=== PATIENT | male | born 1950 | race Caucasian/White ===

== ENCOUNTER 2025-09-18 10:48 | Outpatient (REF) | payer MEDICARE, SELFPAY ==
--- OUTSIDE RECORDS SUMMARY | 2025-09-18 13:02 | XMS_ITS | Clinical Summary ---
Author Organization [facility] Address [address] [place] [address] Phone Care Team Providers Care Nicker Name Role Phone Meghna Shaw MD Primary Care Provider Allergies No known active allergies Medications nitroglycerin (NITROSTAT) 0.[address] 1 tablet (0.4 mg total) under the tongue every 5 (five) minutes if needed. 07/04/2022 Active aspirin 81 mg EC tablet Take 1 tablet (81 mg total) by mouth 1 (one) time each day. 90 tablet 3 04/20/2025 Active atorvastatin (LIPITOR) 40 mg tablet Take 1 tablet (40 mg total) by mouth 1 (one) time each day. 90 tablet 3 04/20/2025 Active sacubitriL-vals willie (Entresto) 49-51 mg per tablet Take 1 tablet by mouth 2 (two) times a day. 180 tablet 3 04/20/2025 Active metoprolol succinate (TOPROL-XL) 25 mg 24 hr tablet Take 1 tablet (25 mg total) by mouth 1 (one) time each day. 90 tablet 1 04/20/2025 Active omeprazole (PriLOSEC) [address] capsule TAKE 1 CAPSULE BY MOUTH EVERY DAY 90 capsule 08/15/2025 Active Active Problems Problem Noted Date Diagnosed Date History of lung cancer 03/09/2025 Assessment & Plan (03/09/2025 10:04 AM EDT): Mr. Pryor is a 74 year old male who had a right lower lobectomy in January 2023 for stage Ia squamous cell carcinoma. The patient's most recent surveillance chest CT scan done in February 2025 shows no new, or worsening, pulmonary nodule or thoracic adenopathy to suggest recurrence or new disease. He does have multiple calcified and noncalcified pleural plaques which appear stable. We will continue with routine chest CT surveillance the next of which would be in 1 year, February 2026. The patient have a follow-up visit after that. Cardiomyopathy (CMS/HCC V24, CMS/HCC V28) 2022 Overview (04/20/2025): - ischemic cardiomyopathy, LVEF 35-40% in 07/2022 - Most recent echocardiogram 10/2023 showing LVEF 45-50%, mild concentric LVH, abnormal septal motion, normal biatrial size, normal RV size and global function, without hemodynamically significant valve disease and normal PASP. Assessment & Plan (04/20/2025 1:00 PM EDT): The patient's LVEF is mild to moderately reduced. He appears euvolemic on exam today. He states that when his Entresto was increased, his breathing improved. As such, continue his beta-harsh and ARNI. Will update his echocardiogram at his convenience. Pulmonary nodule 01/12/2023 Overview (11/02/2024): Last Assessment & Plan: 72-year-old male current smoker but has cut down who has had serial low-dose CT scans as part of the lung cancer screening program. As most recent CT scan there is a suspicious spiculated 1 cm nodule at the posterior basilar segment of the right lower lobe. He was discussed at multidisciplinary conference and the decision was for pulmonary function testing which she had already had and a visit with me after that. His pulmonary function testing is not prohibitive of lung surgery although he does have a significant cardiac history as described above. We discussed the nodule in general and what nodules could be including inflammatory/infectious versus malignancy. I did also discussed the diagnosis, staging, and treatment of lung cancer which she seemed understand. I gave him a handout regarding this. Options discussed with him would be continued observation which would be a 3-month follow-up CT scan versus navigational bronchoscopy with biopsy versus navigational bronchoscopy with dye marking wedge resection possible lobectomy. He is considering his options and would like to discuss this with his daughter who is local in the area. I discussed the risks and benefits of each of these options in detail. He states he will call us with how he wants to proceed in the next few days. If he decides either for a navigational bronchoscopy with biopsy or surgery he will need cardiology visit which would need to happen as soon as possible so that we can get him on the schedule as soon as possible. All questions were answered. S/P cholecystectomy 06/25/2020 Atrial fibrillation ([facility] V24, [facility] V28) 0 05/16/2019 Overview (04/20/2025): - diagnosed 04/2019 -Cardioversion 06/2019 - status post left atrial appendage exclusion, bilateral PVI and maze procedure at the time of his CABG - No longer anticoagulated Assessment & Plan (04/20/2025 12:58 PM EDT): The patient has not had any clinical recurrence of his atrial fibrillation. He is in sinus rhythm on his EKG in office today. He is no longer anticoagulated following Maze, PVI and ERWIN exclusion. Continue BB at current dose. Esophageal cyst 04/07/2018 Overview (11/02/2024): Found on egd in the distal esophagus within the hiatal hernia- pathology: Benign cyst. Short segment distal barretts esopaghus- no further endo as per GI for now. Hiatal hernia 01/11/2018 Anxiety 10/29/2017 CAD (coronary artery disease) 10/29/2017 Overview (04/20/2025): 3V CABG with SMITH to the LAD, SVG to the RCA, and radial artery to the ramus 01/[address] Worrell Most recent stress test 07/2022 showing a fixed inferior wall defect that improved with attenuation correction, LVEF 58% Assessment & Plan (04/20/2025 1:01 PM EDT): The patient has no anginal symptoms to his current MET workload. 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 He is interested in considering visiting orthopedics for consideration for knee discomfort. He will see his PCP about this In the meantime, continue his aspirin, beta-harsh, statin and ARNI COPD (chronic obstructive pu lmonary disease) ([facility] V24, 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 Continue Hyperlipidemia 07/03/2017 Assessment & Plan (04/20/2025 1:01 PM EDT): Well-controlled lipid profile on current dose statin. Continue Tobacco use disorder 07/03/2017 Vitamin D deficiency 07/03/2017 Resolved Problems Problem Noted Date Diagnosed Date Resolved Date Stage I squamous cell carcin kavin of right lung ([facility] V24, [facility] V28) 03/12/2023 03/09/2025 Encounters Date Type Department Care Team Description 08/09/2025 Telephone [facility] [address] [place] [id number] Deyanira Miller NP 07/27/2025 8:30 AM EDT Ancillary Procedure [facility] [address] [place] [id number] Atrial fibrillation, unspecified type ([facility] V24, [facility] V28); Coronary artery disease involving [place] coronary artery of [place] heart without angina pectoris; Ischemic cardiomyopathy; Primary hypertension 07/13/2025 8:30 AM EDT Office Visit Adult Medicine [address] [phone] Meghna Shaw MD Mixed hyperlipidemia (Primary Dx); History of lung cancer; HFrEF (heart failure with reduced ejection fraction) (CMS/HCC V24, CMS/HCC V28); S/P CABG x 3; History of esophageal stricture; Hearing decreased, bilateral 07/12/2025 8:00 AM EDT Consult General Surgery - [place] [address] [place] [address] Payam Rehman MD Carbuncle and furuncle of neck 07/10/2025 10:30 AM EDT Office Visit Walk-In Clinic - [facility] [address] [place] [address] Alfred Isaacs, DIRECTOR RISK Abscess (Primary Dx) from Last 3 Months Immunizations Immunization Administration Dates Next Due COVID-19 (Pfizer/Comirnaty) 12yo and older 09/15/2024 Influenza Quadravalent, 0.5m l (Fluad) 65yo and older 12/31/2021 Influenza Quadravalent, 0.5m l (Fluzone High-dose) 65yo and older 10/02/2022,11/22/2020 Influenza Quadravalent, MDCK , 0.5ml, with preservative (Flucelvax) 6mo and older 11/11/2017 Influenza trivalent, 0.5mL ( Fluad) 65yo and older 09/15/2024,09/10/2023,10/02/2022,08/21,10/12/2019 Influenza trivalent, 0.5mL ( Fluzone High-dose) 65yo and older 09/10/2023,08/21/2021,10/12/2019 Influenza trivalent, with pr eservative (Fluzone; Afluria) 6mo and older 09/24/2011 Moderna (age 6mo & older) Bi valent, COVID-19, 0.5 mL or 0.25 mL dosage 10/02/2022 Moderna (age 6mo-5yr) Bivale nt Additional Dose, COVID-19 10/02/2022 Moderna SARS-CoV-2 COVID-19, mRNA, LNP-S, preservative free 10/02/2022,12/31/2021 Pfizer SARS-CoV-2 COVID-19, mRNA, LNP-S, preservative free 09/15/2024 Pneumococcal conjugate 13 va lent (Prevnar 13, PCV13) 2mo and older 04/30/2017 Pneumococcal conjugate 20 va lent (Prevnar 20, PCV 20) 2mo and older 01/13/2025 Pneumococcal polysaccharide 23 valent (Pneumovax 23) 2yo and older 08/15/2016 Td Tetanus diptheria (Tdvax) 7yo and older 10/12/2019 Surgical History Surgery Date Site/Laterality Comments HERNIA REPAIR PROCEDURE: HISTORICAL HERNIA REPAIR/VICKI KNEE SURGERY Right PROCEDURE: HISTORICAL KNEE SURGERY OTHER SURGICAL HISTORY Left PROCEDURE: HISTORY OTHER; COMMENT: hydrocele TONSILLECTOMY PROCEDURE: HISTORICAL TONSILLECTOMY UPPER GASTROINTESTINAL ENDOSCOPY 04/02/2018 PROCEDURE: IA UPPER GI ENDOSCOPY PERFORMED; COMMENT: Aziza@[facility]; medium sized distal esophageal submucosal mass. Biopsies showed simple submucosal cyst. OTHER SURGICAL HISTORY 02/2020 PROCEDURE: IA CABG W/ARTERIAL GRAFT THREE ARTERIAL GRAFTS CHOLECYSTECTOMY PROCEDURE: LAPAROSCOPIC CHOLECYSTECT CATARACT EXTRACTION 09/30/2023 PROCEDURE: HISTORICAL CATARACT REMOVAL OTHER SURGICAL HISTORY 02/24/2023 Right PROCEDURE: IA THORACOSCOPY W/LOBECTOMY SINGLE LOBE; COMMENT: RLL Wedge & Lobectomy COLONOSCOPY 04/07/2024 PROCEDURE: HISTORICAL COLONOSCOPY; COMMENT: multiple colon polyps OTHER SURGICAL HISTORY 04/07/2024 PROCEDURE: IA EGD BALLOON DILATION ESOPHAGUS <30 MM DIAM Medical History Medical History Date Comments Hyperlipidemia 07/03/2017 DX:Hyperlipidemi a HTN (hypertension) 07/03/2017 DX:HTN (hyper tension) Vitamin D deficiency 07/03/2017 DX:Vitamin D deficiency Alcohol abuse 07/03/2017 DX:Alcohol abuse Tobacco use disorder 07/03/2017 DX:Tobacco use disorder Erectile dysfunction 07/03/2017 DX:Erectile dysfunction Mild diastolic dysfunction 09/21/2017 DX:Mi ld diastolic dysfunction CAD (coronary artery disease) 10/29/2017 DX :CAD (coronary artery disease) Anxiety 10/29/2017 DX:Anxiety COPD (chronic obstructive pu lmonary disease) ([facility] V24, [facility] V28) 10/29/2017 DX:COPD (chronic o bstructive pulmonary disease) ([facility]) DJD (degenerative joint dise ase) of knee 10/29/2017 DX:DJD (degenerative joint d isease) of knee Hiatal hernia 01/11/2018 DX:Hiatal hernia Esophageal cyst 04/07/2018 DX:Esophageal cy st; COMMENT: Found on egd in the distal esophagus- pathology pendinig- 04/16 Atrial fibrillation (CMS/HCC V24, CMS/HCC V28) 05/16/2019 DX:Atrial fibrillation (HCC) ; COMMENT: With RVR- dilatiazem drip Cardiomyopathy (CMS/HCC V24, CMS/HCC V28) 02/12/2023 DX:Cardiomyopathy (HCC) Stage I squamous cell carcin kavin of right lung (CMS/HCC V24, CMS/HCC V28) 03/12/2023 DX:Stage I squam ous cell carcinoma of right lung (HCC) S/P cholecystectomy 06/25/2020 DX:S/P sandy cystectomy Pulmonary nodule 01/12/2023 DX:Pulmonary no dule Preop cardiovascular exam 02/12/2023 DX:Pre op cardiovascular exam History of lung cancer 03/10/2023 DX:Histor y of lung cancer Family History Medical History Relation Name Comments No Known Problems Brother 1 No Known Problems Brother 2 No Known Problems Daughter Coronary artery disease Father No Known Problems Mother Other: colitis Sister Other: fentanyl over Son fr om fentanyl overdose at 26yr Relation Name Status Comments Brother 1 Alive Brother 2 Alive Daughter Alive Father Mother Sister Son Social History Tobacco Use Types Packs/Day Years Used Date Smoking Tobacco: Former Cigarettes 0.5 62.6 0 07/03/1960 - 02/23/2023 Smokeless Tobacco: Never Alcohol Use Standard Drinks/Week Comments Yes 0 (1 standard drink = 0.6 oz pur e alcohol) Sex and Gender Information Value Date Recorded Sex Assigned at Male 12/30/2024 4:28 PM EST Legal Sex Male 6:04 PM EST Gender Identity Male 12/30/2024 4:28 PM EST Sexual Orientation Straight 12/30/2024 4: 28 PM EST Obstetrics History Last Filed Vital Signs Vital Sign Reading Time Taken Comments Blood Pressure 129/82 07/27/2025 10:02 AM EDT Pulse 70 07/13/2025 8:25 AM EDT Temperature 36.3 C (97.4 F) 07/13/2025 8:25 AM EDT Respiratory Rate 16 07/13/2025 8:25 AM EDT Oxygen Saturation 97% 07/10/2025 10:24 AM EDT Inhaled Oxygen Concentration - - Weight 84.8 kg (187 lb) 07/27/2025 10:02 AM EDT Height 170.2 cm (5' 7 ) 07/27/2025 10:02 AM EDT Body Mass Index 29.29 07/27/2025 10:02 AM EDT Plan of Treatment Upcoming Encounters Date Type Department Care Team (Late st Contact Info) Description 12/29/2025 10:40 AM EST Office Visit [facility] [address] [place] [phone] Aye Ritchie NP [address] [place] [address] [address] [place] [address] 01/15/2026 8:30 AM EST Office Visit Adult Medicine - [place] [address] [place] [address] Ld Brice PA [address] [place] [address] Health Maintenance Due Date Last Done Comments Hepatitis A Vaccines (1 of 2 - Risk 2-dose series) 1969 Zoster Vaccines (1 of 2) 1969 Social Influencers of Health Screening 11/08/2022 Lung Cancer Screening (Low Dose CT) 12/29/2023 12/29/2022, 12/26/2021, 12/24/2020 RSV Immunization Adult Patients (1 - 1-dose 75+ series) 2025 COVID-19 Vaccine ( season) 2025 09/15/2024, 09/15/2024, 10/02/2022, Additional history exists Influenza Vaccine (#1) 2025 , 09/10/2023, 09/10/2023, Additional history exists Falls Risk Assessment 01/13/2026 01/13/2025, 024 Hypertension/CHF/CAD Annual BMP Blood Test 01/13/2026 01/13/2025, 02/02/2024 Medicare Annual Wellness Visit 01/13/2026 01/13/2025 Colorectal Cancer Screening: Colonoscopy 05/05/2027 04/06/2024 DTaP,Tdap,and Td Vaccines (2 - Td or Tdap) 10/12/2029 10/12/2019 Cholesterol Screening (Lipid Panel) 01/13/2030 01/13/2025, 02/02/2024 Abdominal Aortic Aneurysm (AAA) Screen Completed 08/21/2017, 08/21/2017 Hepatitis C Screening Completed 11/11/2017 Depression Screening Completed 01/13/2025, 12/14/19 24 Pneumococcal Vaccine: 50+ Years Completed 01/13/2025, 04/30/2017, 08/15/2016 HIB Vaccines Aged Out No longer eligi ble based on patient's age to complete this topic HPV Vaccines Aged Out No longer eligi ble based on patient's age to complete this topic Hepatitis B Vaccines Aged Out No long er eligible based on patient's age to complete this topic IPV Vaccines Aged Out No longer eligi ble based on patient's age to complete this topic MMR Vaccines Aged Out No longer eligi ble based on patient's age to complete this topic Meningococcal ACWY Vaccine Aged Out N o longer eligible based on patient's age to complete this topic Meningococcal B Vaccine Aged Out No l onger eligible based on patient's age to complete this topic RSV Immunization Patients Under 20 months Aged Out No longer eligible based on patient's age to complete this topic Varicella Vaccines Aged Out No longer eligible based on patient's age to complete this topic Procedures Procedure Name Priority Date/Time Associated Diagnosis Comments TRANSTHORACIC ECHOCARDIOGRAM (TTE) COMPLETE W/ CONTRAST Routine 07/27/2025 9:15 AM EDT Atrial fibrillation, unspecified type (CMS/HCC V24, CMS/HCC V28) Coronary artery disease involving [place] coronary artery of [place] heart without angina pectoris Ischemic cardiomyopathy Primary hypertension COMPREHENSIVE METABOLIC PANEL Routine 01/13/2025 11:48 AM EST Medicare annual wellness visit, subsequent Cardiomyopathy, unspecified type (CMS/HCC V24, CMS/HCC V28) Coronary artery disease due to lipid rich plaque Primary hypertension LIPID PANEL WITH REFLEX TO DIRECT LDL Routine 01/13/2025 11:48 AM EST Medicare annual wellness visit, subsequent Cardiomyopathy, unspecified type (CMS/HCC V24, CMS/HCC V28) Coronary artery disease due to lipid rich plaque Primary hypertension COLONOSCOPY Routine 04/06/2024 DEPRESSION SCREENING Routine 12/14/2023 FALLS RISK ASSESSMENT Routine 12/07/2023 CT LUNG SCREENING LOW DOSE Routine 12/29/2022 2:05 PM EST Personal history of nicotine dependence HEPATITIS C SCREENING Routine 11/11/2017 US ABDOMINAL AORTA REAL TIME SCREEN STUDY AAA Routine 08/21/2017 10:57 AM EDT Encounter for screening for cardiovascular disorders from Last 3 Months or Most Recently Relevant to Health Maintenance Results * (ABNORMAL) TRANSTHORACIC ECHOCARDIOGRAM (TTE) COMPLETE W/ CONTRAST (07/27/2025 9:15 AM EDT) LV EDV (A2C) 67 mL CV PACS LV EDV (A4C) 94 mL CV PACS LV Diastolic Volume (BP) 79 62 - 150 mL CV PACS LV ESV (A2C) 28 mL CV PACS LV ESV (A4C) 46 mL CV PACS LV Systolic Volume (BP) 37 21 - 61 mL CV PACS IVSD 1.1(A) 0.6 - 1.0 cm CV PACS LVIDD 5.7 4.2 - 5.8 cm CV PACS LVIDS 4.2(A) 2.5 - 4.0 cm CV PACS LVOT Diameter 2.4 cm CV PACS LVOT Mean Dean 0.5 m/s CV PACS LVOT Mean Grad 1 mmHg CV PACS LVOT Mean Grad 1 mmHg CV PACS LVOT Peak VTI 15.0 cm CV PACS LVOT Peak Dean 0.7 m/s CV PACS LVOT Peak Gradient 2 mmHg CV PACS LVPWD 1.1(A) 0.6 - 1.0 cm CV PACS MV E' Tissue Velocity Lateral 11 cm/s CV PACS MV E' Tissue Velocity Septal 5 cm/s CV PACS Ejection Fraction (A2C) 58 % CV PACS Ejection Fraction (A4C) 51 % CV PACS Ejection Fraction (BP) 54 % CV PACS LVOT Area 4.5 cm2 CV PACS LVOT Stroke Volume 68 mL CV PACS Left Atrium Minor Viola 6.5 cm CV PACS Left Atrium Major Viola 6.4 cm CV PACS LA Area Sys (A2C) 28 cm2 CV PACS LA Area Sys (A4C) 26 cm2 CV PACS LA Volume (BP) 95 mL CV PACS RA Area 18.2 cm2 CV PACS RA 2D Volume 46 mL CV PACS AV Mean Gradient 3 mmHg CV PACS AV Mean Gradient 3 mmHg CV PACS Ao VTI 25.0 cm CV PACS AV Peak Dean 1.2 m/s CV PACS AV Peak Gradient 6 mmHg CV PACS AV Area Continuity Equation 2.7 cm2 CV PACS AV Area Peak Velocity 2.7 cm2 CV PACS Aortic Arch 2.5 cm CV PACS Ascending Aorta 3.9 cm CV PACS Aortic Sinus Valsalva 3.9 cm CV PACS IVC Proximal 2.0 cm CV PACS MV Deceleration Alexander 2.9 m/s2 CV PACS E Wave Deceleration Time 183 119 - 242 ms CV PACS MV PHT 63 ms CV PACS MV Peak A Dean 0.52 m/s CV PACS MV Peak E Dean 0.52 m/s CV PACS MV Mean Gradient 0 mmHg CV PACS MV Mean Gradient 0 mmHg CV PACS MV Mean Gradient 0 mmHg CV PACS MV Mean Gradient 0 mmHg CV PACS MV VTI 18.7 cm CV PACS Mitral Valve Max Velocity 0.7 m/s CV PACS MV Peak Gradient 2 mmHg CV PACS MV Area PHT 3.5 cm2 CV PACS MV Area Continuity Equation 3.6 cm2 CV PACS PV Acceleration Time 120 ms CV PACS PV Acceleration Time 120 ms CV PACS PV Acceleration Time 120 ms CV PACS PV Mean Gradient 1 mmHg CV PACS PV VTI 13.7 cm CV PACS PV Peak Velocity 0.8 m/s CV PACS PV Peak Gradient 3 mmHg CV PACS RV Diastolic Basal Dimension 4.2(A) 2.5 - 4.1 cm CV PACS RV S' 8 cm/s CV PACS TAPSE 20 mm CV PACS TR Peak Velocity 2.80 m/s CV PACS TR Peak Gradient 31 mmHg CV PACS E/E' Ratio Septal 10 CV PACS E/E' Ratio Averaged 8 CV PACS Relative Wall Thickness ratio 0.39 CV PACS LVOT:AV VTI Index 0.60 CV PACS FS 26 % CV PACS LV Mass 2D 257 g CV PACS MV VTI:LVOT VTI ratio 1.2 CV PACS LVOT flow 226 mL/s CV PACS AV Velocity Ratio 0.58 CV PACS E/A Ratio 1.0 CV PACS E/E' Ratio Lateral 5 CV PACS BSA 2 m2 CV PACS LV Diastolic Volume Index (BP) 40 34 - 74 mL/m2 CV PACS LV Systolic Volume Index (BP) 19 11 - 31 mL/m2 CV PACS LV EDV Index (A4C) 48 mL/m2 CV PACS LV ESV Index (A4C) 23 mL/m2 CV PACS LV EDV Index (A2C) 34 mL/m2 CV PACS LV ESV Index (A2C) 14 mL/m2 CV PACS LA Volume Index (BP) 48 mL/m2 CV PACS LVIDD Index 2.89 cm/m2 CV PACS LVIDS Index 2.13 cm/m2 CV PACS LV Mass Index 2D 130(A) 50 - 102 g/m2 CV PACS LVOT Stroke Index 35 mL/m2 CV PACS RA 2D Volume Index 23 18 - 32 mL/m2 CV PACS ANTWAN Index (VTI) 1.38 cm2/m2 CV PACS ANTWAN Index (Pk Dean) 1.37 cm2/m2 CV PACS Ascending Aorta Index 1.98 cm/m2 CV PACS Right Ventricular Peak Systolic Pressure 34 mmHg CV PACS Est. RA Pressure 3 mmHg CV PACS Anatomical Region Laterality Modality Ultrasound Narrative 08/01/2025 10:42 AM EDT Left ventricle cavity size is normal. There is mild concentric hypertrophy. Systolic function is low normal with an ejection fraction of 50-55%. There are no regional LV wall motion abnormalities. Right ventricle was not well visualized. Right ventricle cavity is mildly dilated. Systolic function is normal. Mild mitral regurgitation. Mild tricuspid regurgitation. The right ventricular systolic pressure is normal. The RVSP is estimated at 34 mmHg. Compared to previous study of 11/13/2023, right ventricle appears mildly enlarged. The differences could be technical related. Left Ventricle Left ventricle cavity size is normal. There is mild concentric hypertrophy. Systolic function is low normal with an ejection fraction of 50-55%. There are no regional LV wall motion abnormalities. Indeterminate diastolic function. There is abnormal septal motion. Right Ventricle Right ventricle was not well visualized. Right ventricle cavity is mildly dilated. Systolic function is normal. Left Atrium Left atrium cavity is moderately dilated. Right Atrium Right atrium cavity is normal. IVC/SVC Inferior vena cava structure is normal. RA pressures is estimated to be 8 mmHg (IVC diameter <21 mm and decreases <50% during inspiration). Mitral Valve The leaflets are mildly thickened. There is mild annular calcification. There is mild regurgitation with a centrally directed jet. There is no evidence of mitral valve stenosis. Tricuspid Valve Tricuspid valve structure is normal. There is mild regurgitation with a central jet. There is no evidence of tricuspid valve stenosis. The right ventricular systolic pressure is normal. The RVSP is estimated at 34 mmHg. Aortic Valve The aortic valve is trileaflet. The leaflets are mildly thickened. There is no regurgitation or stenosis. Pulmonic Valve The pulmonic valve was not well visualized. There is trace pulmonic valve regurgitation. There is no evidence of pulmonic valve stenosis. Ascending Aorta The ascending aorta is (3.9 cm). Pericardium Pericardium appears normal. There is no pericardial effusion. Study Details Overall the study quality was technically difficult. Definity contrast was given to enhance imaging. Deyanira Miller NP CV ECHO PROCEDURES Final Result * Lipid panel with reflex to direct LDL (01/13/2025 11:48 AM EST) Cholesterol 139 0 - 200 mg/dL LAB CHEMISTRY METHOD 01/13/2025 1:24 PM EST [facility] Triglycerides 121 0 - 150 mg/dL LAB CHEMISTRY METHOD 01/13/2025 1:24 PM EST [facility] HDL 49 >=40 mg/dL LAB CHEMISTRY METHOD 01/13/2025 1:24 PM EST [facility] LDL Calculated 66 0 - 100 mg/dL LAB CHEMISTRY METHOD 01/13/2025 1:24 PM EST [facility] VLDL Cholesterol Teto 24.2 mg/dL LAB CHEMISTRY METHOD 01/13/2025 1:24 PM EST [facility] Non HDL Chol. (LDL+VLDL) 90 <145 mg/dL LAB CHEMISTRY METHOD 01/13/2025 1:24 PM [facility] Chol/HDL Ratio 2.8 0.0 - 4.4 LAB CHEMISTRY METHOD 01/13/2025 1:24 PM [facility] Blood Venous blood specimen / Unknown Venipuncture / Unknown 01/13/2025 11:48 AM EST 01/13/2025 11:48 AM EST us Ld [facility] LAB BLOOD ORDERABLES Final Re sult [facility] [address] [place] [address], * (ABNORMAL) Comprehensive metabolic panel (01/13/2025 11:48 AM EST) Sodium 136 133 - 145 mmol/L LAB CHEMISTRY METHOD 01/13/2025 1:24 PM [facility] [facility] Potassium 3.9 3.5 - 5.5 mmol/L LAB CHEMISTRY METHOD 01/13/2025 1:24 PM [facility] Chloride 104 96 - 110 mmol/L LAB CHEMISTRY METHOD 01/13/2025 1:24 PM [facility] CO2 27 21 - 32 mmol/L LAB CHEMISTRY METHOD 01/13/2025 1:24 PM [facility] Anion Gap 5 3 - 11 LAB CHEMISTRY METHOD 01/13/2025 1:24 PM [facility] Glucose 84 70 - 100 mg/dL LAB CHEMISTRY METHOD 01/13/2025 1:24 PM [facility] BUN 21 5 - 25 mg/dL LAB CHEMISTRY METHOD 01/13/2025 1:24 PM [facility] Creatinine 1.25 0.70 - 1.30 mg/dL LAB CHEMISTRY METHOD 01/13/2025 1:24 PM [facility] eGFR 60 >=60 mL/min/1. 73m2 LAB CHEMISTRY METHOD 01/13/2025 1:24 PM [facility] Comment:Calculation based on the Chronic Kidney Disease Epidemiology Collaboration (CKD-EPI) equation refit without adjustment for race. BUN/Creatinine Ratio 16.8 LAB CHEMISTRY METHOD 01/13/2025 1:24 PM [facility] Calcium 9.0 8.5 - 10.5 mg/dL LAB CHEMISTRY METHOD 01/13/2025 1:24 PM [facility] AST (SGOT) 19 10 - 42 unit/L LAB CHEMISTRY METHOD 01/13/2025 1:24 PM [facility] ALT (SGPT) 25 10 - 60 unit/L LAB CHEMISTRY METHOD 01/13/2025 1:24 PM [facility] Alkaline Phosphatase 103 42 - 121 unit/L LAB CHEMISTRY METHOD 01/13/2025 1:24 PM [facility] Total Protein 7.2 6.0 - 8.0 g/dL LAB CHEMISTRY METHOD 01/13/2025 1:24 PM [facility] Albumin 3.6 3.2 - 5.0 g/dL LAB CHEMISTRY METHOD 01/13/2025 1:24 PM [facility] Total Bilirubin 2.1(H) 0.0 - 1.4 mg/dL LAB CHEMISTRY METHOD 01/13/2025 1:24 PM [facility] Blood Venous blood specimen / Unknown Venipuncture / Unknown 01/13/2025 11:48 AM EST 01/13/2025 11:48 AM EST us [facility] BLOOD ORDERABLES Final Re sult [facility] [address] [place] [address], [place] [phone] * Colonoscopy (04/06/2024) Colonoscopy No interpreta tion,abstr acted Anatomical Region Laterality Modality Other Historical Provider HEALTH MAINTENANCE Final Result * Depression Screening (12/14/2023) Depression Screening Abstracted Historical Provider HEALTH MAINTENANCE Final Result * Falls Risk Assessment (12/07/2023) Falls Risk Assessment Abstracted Historical Provider HEALTH MAINTENANCE Final Result * CT LUNG SCREENING LOW DOSE (12/29/2022 2:05 PM EST) Anatomical Region Laterality Modality Computed Tomogra phy 12/29/2022 8:17 AM EST Narrative 12/29/2022 2:05 PM [facility] Diagnostic Imaging Department [address] [place] [id number] Patient: ROLAND PRYOR D.O.B./Age/Sex: 1950 - 72 - M Unit#: [id number] Location/Status: NOE/EMBER CLI Mnemonic/Ordering Site: CTLUNGLD/SPCT Ordering Physician: ARTUR PEDERSON MD CT Lung Screening Low Dose - 12/29/22821 PROCEDURE: CT Lung Screening Low Dose INDICATION: Tobacco abuse Current smoker with 79.5 pack year total COMPARISON: 12/26/2021 TECHNIQUE: Noncontrast low dose chest CT was performed per lung cancer CT screening protocol. Washio VCT dose reduction, utilizing iterative reconstruction. Total exam DLP 180.04 (mGy-cm) FINDINGS: The heart is within normal limits in size. There is no pericardial effusion. The patient is status post coronary artery bypass graft. There is no evidence for middle mediastinal lymphadenopathy. The pulmonary kendall are symmetric, but mild adenopathy cannot be excluded without IV contrast material. Developing 1.0 x 1.0 cm noncalcified pulmonary nodule with spiculated borders located within the posterior basal segment of the right lower lobe. No evidence of suspicious pulmonary nodule on the left. No evidence of confluent airspace opacity or lung consolidation. Findings are superimposed upon a background of moderate upper lobe predominant centrilobular and paraseptal emphysematous changes Partially calcified pleural plaques bilaterally which can be seen in setting of prior asbestos exposure. Technique was not optimized for assessment of the included upper abdomen. Fluid density lesion at the distal third of the thoracic esophagus measuring 3.2 x 2.7 x 3.0 cm is not significantly changed in size, but results in partial effacement of the esophageal lumen. The included portion of the skeleton demonstrates no evidence of aggressive bony lesion. Degenerative endplate ridging at the midthoracic spine and thoracolumbar junction. IMPRESSION: Developing 1.0 cm spiculated pulmonary nodule within the right lower lobe. 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 Lung Rads Category: 4B-very suspicious - Further evaluation with PET/CT or tissue sampling is recommended. [id number] G9557 G9551 [id number] Dictating Physician: HENNY RAMOS MD Electronically Signed by: HENNY RAMOS MD Dic Date/Time: 12/29/22 1357 Sign date/Time: 12/29/22 1400 Procedure Note Henny Ramos MD - 01/01/2024 [facility] Diagnostic Imaging Department [address] [place] [address] Patient: ROLAND PRYOR /Age/Sex: 1950 - 72 - M Unit#: [id number] Location/Status: SPDICATLS/REG CLI Mnemonic/Ordering Site: CTLUNGLD/SPCT Ordering Physician: ARTUR PEDERSON MD CT Lung Screening Low Dose - 12/29/22821 PROCEDURE: CT Lung Screening Low Dose INDICATION: Tobacco abuse Current smoker with 79.5 pack year total COMPARISON: 12/26/2021 TECHNIQUE: Noncontrast low dose chest CT was performed per lung cancerCT screening protocol. Washio VCT dose reduction, utilizing iterative reconstruction. Total exam DLP 180.04 (mGy-cm) FINDINGS: The heart is within normal limits in size. There is no pericardialeffusion. The patient is status post coronary artery bypass graft. There is no evidence for middle mediastinal lymphadenopathy. The pulmonaryhila are symmetric, but mild adenopathy cannot be excluded without IVcontrast material. Developing 1.0 x 1.0 cm noncalcified pulmonary nodule with spiculatedborders located within the posterior basal segment of the right lower lobe. No evidence of suspicious pulmonary nodule on the left. No evidence of confluent airspace opacity or lung consolidation. Findings aresuperimposed upon a background of moderate upper lobe predominant centrilobular and paraseptal emphysematous changes Partially calcified pleural plaques bilaterally which can be seen insetting of prior asbestos exposure. Technique was not optimized for assessment of the included upperabdomen. Fluid density lesion at the distal third of the thoracic esophagusmeasuring 3.2 x 2.7 x 3.0 cm is not significantly changed in size, but results inpartial effacement of the esophageal lumen. The included portion of the skeleton demonstrates no evidence ofaggressive bony lesion. Degenerative endplate ridging at the midthoracic spine and thoracolumbar junction. IMPRESSION: Developing 1.0 cm spiculated pulmonary nodule within theright lower lobe. 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 Lung Rads Category: 4B-very suspicious - Further evaluation with PET/CTor tissue sampling is recommended. [id number] G9557 G9551 [id number] Dictating Physician: HENNY RAMOS MD Electronically Signed by: HENNY RAMOS MD Dic Date/Time: 12/29/22 1352 Sign date/Time: 12/29/22 1405 Artur Pederson MD IMG CT PROCEDURES Final Result * Hepatitis C Screening (11/11/2017) Hepatitis C Screening Abstracted Historical Provider HEALTH MAINTENANCE Final Result * US ABDOMINAL AORTA REAL TIME SCREEN STUDY AAA (08/21/2017 10:57 AM EDT) Anatomical Region Laterality Modality Ultrasound 08/12/2017 9:26 AM EDT Narrative 08/21/2017 4:51 PM EDT Abdominal aortic ultrasound: HISTORY: AAA screening Abdominal aorta is normal in size measuring 2.3 cm proximally 1.8 cm mid and 1.4 cm distally. Common iliac arteries are normal in size. IMPRESSION: IMPRESSION: No evidence of AAA. Procedure Note Walter Sullivan MD - 01/01/2024 Abdominal aortic ultrasound: HISTORY: AAA screening Abdominal aorta is normal in size measuring 2.3 cm proximally 1.8 cm midand 1.4 cm distally. Common iliac arteries are normal in size. IMPRESSION: IMPRESSION: No evidence of AAA. Luba Cordova MD IMG US PROCEDURES Edite d Result - Final from Last 3 Months or Most Recently Relevant to Health Maintenance Insurance [employer] Advance Directives Documents on File Type Date Recorded Patient Associate Medical Director Expl anation Health Care Decision (hx) 03/03/2023 AD CALDERON DIRECTIVE Health Care Decision (hx) 03/03/2023 AD CALDERON DIRECTIVE Health Care Decision (hx) 03/03/2023 AD CALDERON DIRECTIVE Health Care Decision (hx) 03/03/2023 AD CALDERON DIRECTIVE Health Care Decision (hx) 03/03/2023 AD CALDERON DIRECTIVE Health Care Decision (hx) 03/03/2023 AD CALDERON DIRECTIVE Health Care Decision (hx) 03/03/2023 AD CALDERON DIRECTIVE Health Care Decision (hx) 03/03/2023 AD CALDERON DIRECTIVE Health Care Decision (hx) 03/03/2023 AD CALDERON DIRECTIVE Health Care Decision (hx) 03/03/2023 AD CALDERON DIRECTIVE Health Care Decision (hx) 03/03/2023 AD CALDERON DIRECTIVE Health Care Decision (hx) 03/03/2023 AD CALDERON DIRECTIVE Health Care Decision (hx) 03/03/2023 AD CALDERON DIRECTIVE Care Teams Nicker Relationship Specialty Start Date End Date Meghna Shaw MD [address] [place] [id number] PCP - General Internal Medicine 04/12/25
== END 2025-09-18 10:49 | disposition home or self-care (01) ==
LOC: HO.SH 10:48
PROVIDERS: Visit Provider Family Medicine
DX: Z01.118 Encounter for examination of ears and hearing with other abnormal findings (principal); H90.3 Sensorineural hearing loss, bilateral
CPT/HCPCS: 92557; 92567